=== PATIENT | male | born 1965 | race African-American/Black ===

== ENCOUNTER 2018-02-04 02:33 | Emergency (ER) | payer SELFPAY ==
[~2018-02-04] VITALS: Ht 188 cm; Wt 83.9 kg
[2018-02-04] MEDS ORDERED: NKM (02:52)
[2018-02-04] MEDS ORDERED: Sodium Chloride 500ML 500 ML IV ONE (03:14)
[2018-02-04] MEDS ORDERED: Ketorolac 30mg Inj IV ONE (03:15)
[2018-02-04] MEDS ORDERED: Morphine Sulfate 4mg/ml Inj (IV USE ONLY) IVP ONE ×2 (03:15→07:00)
[2018-02-04] MEDS ORDERED: Isovue-300 100ml vial INJ PRN (03:15)
[2018-02-04 04:01] LABS: APPEARANCE,URINE CLEAR; BILIRUBIN, URINE NEGATIVE (NEGATIVE); COLOR,URINE PALE YELLOW; GLUCOSE, URINE (UA) NEGATIVE (NEGATIVE); KETONES,URINE NEGATIVE (NEGATIVE); LEUKOCYTE ESTERASE ,URINE NEGATIVE (NEGATIVE); NITRITE,URINE NEGATIVE (NEGATIVE); PH,URINE 7 (4.5-8.0); PROTEIN,URINE NEGATIVE (NEGATIVE); UROBILINOGEN,URINE NORMAL MG/DL (0.0-1.0)
[2018-02-04 04:03] LABS: BASOPHILS % (AUTO) 1.4 % (0.0-2.0); EOSINOPHILS % (AUTO) 6.4 % (0.0-3.0); HEMATOCRIT 39.3 % (42.0-52.0); HEMOGLOBIN 12.8 G/DL (14.2-18.0); LYMPHOCYTES % (AUTO) 33.6 % (20.0-45.0); MEAN CORPUSCULAR VOLUME 89 FL (80-99); MONOCYTES % (AUTO) 10.9 % (1.0-10.0); NEUTROPHILS % (AUTO) 47.7 % (45.0-75.0); PLATELET COUNT 162 K/UL (150-450); RED CELL DISTRIBUTION WIDTH 11.3 % (11.6-14.8); WHITE BLOOD COUNT 5.6 K/UL (4.8-10.8)
[2018-02-04 04:12] LABS: ANION GAP 7 mmol/L (5-15); BLOOD UREA NITROGEN 32 mg/dL (7-18); CALCIUM 8.8 MG/DL (8.5-10.1); CARBON DIOXIDE 29 MMOL/L (21-32); CHLORIDE 103 MMOL/L (98-107); CREATININE 1.2 MG/DL (0.55-1.30); POTASSIUM 3.8 MMOL/L (3.5-5.1); SODIUM 139 MMOL/L (136-145)
[2018-02-04 04:16] LABS: ALANINE AMINOTRANSFERASE 34 U/L (12-78); ALBUMIN 3.7 G/DL (3.4-5.0); ALKALINE PHOSPHATASE 78 U/L (46-116); ASPARTATE AMINO TRANSFERASE 24 U/L (15-37); BILIRUBIN,TOTAL 0.3 MG/DL (0.2-1.0)
[2018-02-04 05:27] VITALS: BP 106/69
--- NOTE | 2018-02-04 05:33 | Emergency Room Report ---
History of Present Illness General Chief Complaint: Abdominal Pain Source: Patient Present Illness HPI 53-year-old male presents ED for evaluation. Patient complaining of abdominal pain for the last 10 days. Pain is sharp, 9 out of 10, nonradiating. Localized to right lower quadrant. Denies fevers or chills. Denies nausea or vomiting. Also complaining of bilateral hip pain for the last several years. Denies any recent injury or trauma. No other aggravating or relieving factors. Denies any other associated symptoms Allergies: Coded Allergies: No Known Allergies (Unverified , 02/04/18) Patient History Past Medical History: none Past Surgical History: none Pertinent Family History: none Social History: Denies: smoking, alcohol use, drug use Immunizations: UTD Reviewed Nursing Documentation: PMH: Agreed; PSxH: Agreed Nursing Documentation-PMH Past Medical History: No Stated History Review of Systems All Other Systems: negative except mentioned in HPI Physical Exam Vital Signs Date Time Temp Pulse Resp B/P (MAP) Pulse Ox O2 Delivery O2 Flow Rate FiO2 02/04/18 02:45 98.3 64 16 108/63 96 Room Air 98.2 Sp02 EP Interpretation: reviewed, normal General Appearance: no apparent distress, alert, GCS 15, non-toxic Head: normocephalic, atraumatic Eyes: bilateral eye normal inspection, bilateral eye PERRL ENT: hearing grossly normal, normal pharynx, no angioedema, normal voice Neck: full range of motion, supple/symm/no masses Respiratory: chest non-tender, lungs clear, normal breath sounds, speaking full sentences Cardiovascular #1: regular rate, rhythm, no edema Cardiovascular #2: 2+ carotid (R), 2+ carotid (L), 2+ radial (R), 2+ radial (L) , 2+ dorsalis pedis (R), 2+ dorsalis pedis (L) Gastrointestinal: normal bowel sounds, soft, non-distended, no guarding, no rebound, tenderness - RLQ Rectal: deferred Genitourinary: normal inspection, no CVA tenderness Musculoskeletal: back normal, gait/station normal, normal range of motion, non- tender Neurologic: alert, oriented x3, responsive, motor strength/tone normal, sensory intact, speech normal Psychiatric: judgement/insight normal, memory normal, mood/affect normal, no suicidal/homicidal ideation Reflexes: 3+ bicep (R), 3+ bicep (L), 3+ tricep (R), 3+ tricep (L), 3+ knee (R) , 3+ knee (L) Skin: normal color, no rash, warm/dry, well hydrated Lymphatic: no adenopathy Medical Decision Making Diagnostic Impression: Primary Impression: Colitis ER Course Hospital Course 53-year-old M presents to ED with RLQ pain Differential diagnosis includes-appendicitis, cholecystitis, small bowel obstruction, gastritis, Clinical course Patient placed on stretcher. After initial history and physical I ordered labs , IV fluids, pain medications and CT scan Labs - no leukocytosis, electrolytes ok, LFTs normal, UA unremarkable CT scan shows ? colitis vs mass in rectosigmoid discussed findings with patient. we will discharge on abx but recommend patient followup with GI for possible cancer workup. patient notes family history of colon cancer. has not yet had colonscopy While not the focus of his CT, there does appear to be significant degenerative joint disease in both hips. Patient is commenting on chronic bilateral hip pain for years now. We will provide him with orthopedic referral we will provide GI referral I feel this is a highly complex case requiring extensive working including EKG/ Rhythm strip, Xray/CT/US, Blood/urine lab work, repeat exams while in ED, and administration of strong opiates/narcotics for pain control, admission to hospital or close patient follow up. Diagnosis - Colitis Stable and discharged to home. Followup with PMD/GI/Ortho. Return to ED if symptoms recur or worsen Labs Test 02/04/18 03:55 White Blood Count 5.6 K/UL (4.8-10.8) Red Blood Count 4.40 M/UL (4.70-6.10) Hemoglobin 12.8 G/DL (14.2-18.0) Hematocrit 39.3 % (42.0-52.0) Mean Corpuscular Volume 89 FL (80-99) Mean Corpuscular Hemoglobin 29.2 PG (27.0-31.0) Mean Corpuscular Hemoglobin Concent 32.6 G/DL (32.0-36.0) Red Cell Distribution Width 11.3 % (11.6-14.8) Platelet Count 162 K/UL (150-450) Mean Platelet Volume 7.2 FL (6.5-10.1) Neutrophils (%) (Auto) 47.7 % (45.0-75.0) Lymphocytes (%) (Auto) 33.6 % (20.0-45.0) Monocytes (%) (Auto) 10.9 % (1.0-10.0) Eosinophils (%) (Auto) 6.4 % (0.0-3.0) Basophils (%) (Auto) 1.4 % (0.0-2.0) Urine Color Pale yellow Urine Appearance Clear Urine pH 7 (4.5-8.0) Urine Specific [place] 1.010 (1.005-1.035) Urine Protein Negative (NEGATIVE) Urine Glucose (UA) Negative (NEGATIVE) Urine Ketones Negative (NEGATIVE) Urine Occult Blood Negative (NEGATIVE) Urine Nitrite Negative (NEGATIVE) Urine Bilirubin Negative (NEGATIVE) Urine Urobilinogen Normal MG/DL (0.0-1.0) Urine Leukocyte Esterase Negative (NEGATIVE) Sodium Level 139 MMOL/L (136-145) Potassium Level 3.8 MMOL/L (3.5-5.1) Chloride Level 103 MMOL/L (98-107) Carbon Dioxide Level 29 MMOL/L (21-32) Anion Gap 7 mmol/L (5-15) Blood Urea Nitrogen 32 mg/dL (7-18) Creatinine 1.2 MG/DL (0.55-1.30) Estimat Glomerular Filtration Rate > 60 mL/min (>60) Glucose Level 84 MG/DL (74-106) Calcium Level 8.8 MG/DL (8.5-10.1) Total Bilirubin 0.3 MG/DL (0.2-1.0) Aspartate Amino Transf (AST/SGOT) 24 U/L (15-37) Alanine Aminotransferase (ALT/SGPT) 34 U/L (12-78) Alkaline Phosphatase 78 U/L (46-116) Total Protein 7.5 G/DL (6.4-8.2) Albumin 3.7 G/DL (3.4-5.0) Globulin 3.8 g/dL Albumin/Globulin Ratio 1.0 (1.0-2.7) Lipase 379 U/L (73-393) CT/MRI/US Diagnostic Results CT/MRI/US Diagnostic Results : Imaging Test Ordered: CT A/P Impression Evidence of wall thickening of the rectosigmoid junction. This could be artifact of under distention, but the possibility of a mass or focal inflammatory change in this area should be considered. Last Vital Signs Date Time Temp Pulse Resp B/P (MAP) Pulse Ox O2 Delivery O2 Flow Rate FiO2 02/04/18 05:27 97.5 52 14 106/69 96 Room Air 97.5 Status: improved Disposition: HOME, SELF-CARE Condition: Stable Scripts Tramadol Hcl* (ULTRAM*) 50 Mg Tablet 50 MG ORAL Q6H PRN for For Pain, #30 TAB 0 Refills Prov: Duglas Arreaga MD 02/04/18 Ciprofloxacin Hcl* (CIPROFLOXACIN HCL*) 500 Mg Tablet 500 MG ORAL Q12H, #14 TAB 0 Refills Prov: Duglas Arreaga MD 02/04/18 Referrals: NOT CHOSEN [facility]/,REFERRING (PCP) Duglas Arreaga MD Feb 04, 2018 05:33
[2018-02-04] MEDS ORDERED: TRAMADOL HCL50 MG ORAL (06:54)
[2018-02-04] MEDS ORDERED: CIPROFLOXACIN500 M2 ORAL (06:54)
[2018-02-04 07:00] VITALS: BP 99/63
[2018-02-04] MEDS ORDERED: traMADol 50mg tab ORAL ONE (07:00)
[2018-02-04 07:16] VITALS: BP 99/63
--- NOTE | 2018-02-04 09:33 | Diagnostic Imaging Report ---
Clinical Indication: Abdominal pain for 3 days Technique: No oral contrast utilized, per emergency room physician request IV administration nonionic contrast. Venous phase spiral acquisition obtained through the abdomen and pelvis. Multiplanar reconstructions were generated. Total dose length product 688.88 mGycm. CTDIvol(s) 13.24 mGy. Dose reduction achieved using automated exposure control Comparison: none Findings: There is a small fat-containing umbilical hernia. The appendix is only equivocally demonstrated. No findings to suggest acute appendicitis are evident. There is distal colonic diverticulosis. No evidence of diverticulitis. No small bowel distention. No free or loculated intraperitoneal air or fluid is evident. There is a small duodenal diverticulum. The distal esophagus and stomach are unremarkable. There is focal wall thickening of the rectosigmoid junction The liver demonstrates a subcentimeter low-attenuation lesion in the dome which is too small to characterize. The gallbladder, bile ducts, pancreas, spleen, adrenals, kidneys are all unremarkable. No retroperitoneal mesenteric mass or adenopathy. No pelvic mass or adenopathy. The prostate is prominent. Prominent nodes are seen in the bilateral inguinal regions, demonstrate preserved normal architecture. The included lung bases are clear. The bones demonstrate rather severe degenerative changes of both hips. There is also degenerative change of the lumbosacral spine. There is mild scoliotic deformity Impression: Evidence of wall thickening of the rectosigmoid junction. This could be artifact of under distention, but the possibility of a mass or focal inflammatory change in this area should be considered. Recommend direct inspection Colonic diverticulosis. No evidence of diverticulitis Subcentimeter low-attenuation liver lesion, too small to characterize Marked degenerative changes of both hips. There is also degenerative spondylosis and scoliotic deformity Nonspecific prominent bilateral inguinal lymph nodes, demonstrating preserved architecture Incidental findings as noted, including small duodenal diverticulum This agrees with the preliminary interpretation provided overnight by [facility] teleradiology service. The CT scanner at [facility] is accredited by the [employer] and the scans are performed using protocols designed to limit radiation exposure to as low as reasonably achievable to attain images of sufficient resolution adequate for diagnostic evaluation.
== END 2018-02-04 07:16 | disposition home or self-care (01) ==
LOC: EDBD → EMR 03:10
DX: K52.9 Noninfective gastroenteritis and colitis, unspecified (principal); K57.30 Diverticulosis of large intestine without perforation or abscess without bleeding; K42.9 Umbilical hernia without obstruction or gangrene
CPT/HCPCS: 36415; 74177; 80053; 81003; 83690; 85025; 96374; 96375; 96376; 99284; J1885; J2270; J7040; Q9967

== ENCOUNTER 2018-02-17 03:32 | Emergency (ER) | payer MEDICAID ==
[~2018-02-17] VITALS: Ht 188 cm; Wt 83.9 kg
[~2018-02-17 03:32] MED LIST: CIPROFLOXACIN500 M2 ORAL; NKM; TRAMADOL HCL50 MG ORAL
[2018-02-17 04:03] VITALS: BP 108/67
[2018-02-17] MEDS ORDERED: IBUPROFEN600 MG ORAL (04:18)
--- NOTE | 2018-02-17 04:19 | Emergency Room Report ---
History of Present Illness General Chief Complaint: Pain Source: Patient Present Illness HPI Is a 53-year-old male with no significant past medical history. He presents with chief complaint of right groin pain. He said his been ongoing problem for months. Has not seen any primary care doctor. He was here about 2 weeks ago. Blood work done was unremarkable. CT scan of abdomen and pelvis showed diverticulosis, prominent inguinal lymph nodes, and enlarged prostate. He presents with continued pain in the groin area. He said only better after he take tramadol. He said he called his uncle who is a see [facility] who recommended that he get a PSA testing done because family member recently of prostate cancer. Patient said the pain is 9 out of 10. Worse with walking. Better with rest. Better with tramadol. No other injury. No urinary complaint. No rectal bleeding. Allergies: Coded Allergies: No Known Allergies (Unverified , 02/04/18) Patient History Past Medical History: see triage record, old chart reviewed Past Surgical History: other Pertinent Family History: none Social History: Denies: smoking Immunizations: other Reviewed Nursing Documentation: PMH: Agreed; PSxH: Agreed Review of Systems Eye: Denies: eye pain, blurred vision ENT: Denies: ear pain, nose congestion, throat swelling Respiratory: Denies: cough, shortness of breath Cardiovascular: Denies: chest pain, palpitations Gastrointestinal: Denies: abdominal pain, diarrhea, nausea, vomiting Musculoskeletal: Denies: back pain, joint pain Skin: Denies: rash Neurological: Denies: headache, numbness Endocrine: Denies: increased thirst, increased urine Hematologic/Lymphatic: Denies: easy bruising All Other Systems: negative except mentioned in HPI Physical Exam Vital Signs Date Time Temp Pulse Resp B/P (MAP) Pulse Ox O2 Delivery O2 Flow Rate FiO2 02/17/18 03:43 97.9 68 16 108/67 97 Room Air 97.9 vitals normal Sp02 EP Interpretation: reviewed, normal General Appearance: well appearing, no apparent distress, alert Head: normocephalic, atraumatic Eyes: bilateral eye PERRL, bilateral eye EOMI ENT: hearing grossly normal, normal pharynx Neck: full range of motion, supple, no meningismus Respiratory: chest non-tender, lungs clear, normal breath sounds Cardiovascular #1: regular rate, rhythm, no murmur Gastrointestinal: normal bowel sounds, non tender, no mass, no organomegaly, no bruit, non-distended Genitourinary: other - tenderness over the right inguinal area. no palpable mass. No abscess. No hernia. Musculoskeletal: back normal, gait/station normal, normal range of motion Neurologic: alert, oriented x3 Psychiatric: mood/affect normal Skin: warm/dry Medical Decision Making Diagnostic Impression: Primary Impression: Groin pain, chronic, right ER Course Patient with chronic right groin pain. Differential include chronic infection, neoplastic process, other STDs to name a few. Explained to the patient that we do not sent PSA tests in the ER because it would not change the course of care in the ER. He has insurance and need to follow-up with his primary care doctor. He may need a biopsy of the inguinal lymph nodes. CT scan recently showed no evidence of any infection even though he was treated with Cipro. I see no need to repeat blood work or CAT scan. Last Vital Signs Date Time Temp Pulse Resp B/P (MAP) Pulse Ox O2 Delivery O2 Flow Rate FiO2 02/17/18 03:43 97.9 68 16 108/67 97 Room Air 97.9 Status: unchanged Disposition: HOME, SELF-CARE Condition: Stable Scripts Ibuprofen* (MOTRIN*) 600 Mg Tablet 600 MG ORAL THREE TIMES A DAY, #30 TAB 0 Refills Prov: BIA CURRIE M.D. 02/17/18 Additional Instructions: Follow-up with your doctor in 7 days. Call your insurance card to make an appointment. Return if symptom change or worsen. BIA CURRIE M.D. Feb 17, 2018 04:19
[2018-02-17 05:03] VITALS: BP 108/67
== END 2018-02-17 05:05 | disposition home or self-care (01) ==
LOC: EMR 04:21 → EDBD 04:21 → EMR 05:05
DX: R10.31 Right lower quadrant pain (principal)
CPT/HCPCS: 99283